=== PATIENT | female | born 1995 | race Caucasian/White ===

== ENCOUNTER 2021-12-20 19:17 | Emergency (ER) | payer SELFPAY ==
[~2021-12-20] VITALS: Ht 167.6 cm; Wt 65.8 kg
--- NOTE | 2021-12-20 19:20 | NUR ---
PT BIBS FOR C/O MIDSTERNAL CP X 3 DAYS, APPEARS VERY ANXIOUS. PT A/OX3 TOLERATING R/A AT 98%. PT CONNECTED TO POX AND MONITOR. SAFETY MEASURES IN PLACE.
--- NOTE | 2021-12-20 20:00 | NUR ---
URINE COLLECTED AND SENT TO LAB
--- NOTE | 2021-12-20 20:01 | NUR ---
MEDICAL SAFETY DIRECTOR AT PT'S BEDSIDE
--- NOTE | 2021-12-20 20:08 | NUR ---
SPACE PHYSICIST AT PT'S BEDSIDE
[2021-12-20 21:19] LABS: BASOPHILS % (AUTO) 0.5 % (0.0-2.0); EOSINOPHILS % (AUTO) 0.8 % (0.0-6.0); HEMATOCRIT 41 % (33-45); HEMOGLOBIN 13.8 g/dL (11.5-14.8); LYMPHOCYTES # (AUTO) 3.6 K/uL (0.8-4.8); LYMPHOCYTES % (AUTO) 44.7 % (20.0-44.0); MEAN CORPUSCULAR HGB CONC 34 g/dl (31.0-36.0); MEAN CORPUSCULAR VOLUME 89 fL (82-100); MONOCYTES # (AUTO) 0.5 K/uL (0.1-1.30); NEUTROPHILS # (AUTO) 3.9 K/uL (1.8-8.9); PLATELET COUNT (AUTO) 170 K/uL (150-450); RED BLOOD CELL COUNT(AUTO) 4.57 MIL/uL (4.0-5.2); WHITE BLOOD COUNT (AUTO) 8.1 K/uL (4.3-11.0)
[2021-12-20 21:27] LABS: CALCIUM, SERUM 8.4 mg/dL (8.5-10.1); CARBON DIOXIDE 23 mmol/L (21-32); CHLORIDE 104 mmol/L (98-107); CREATININE 0.7 mg/dL (0.6-1.3); GLUCOSE 87 mg/dL (74-106); SODIUM SERUM 134 mmol/L (136-145); UREA NITROGEN, BLOOD 14 mg/dL (7-18)
[2021-12-20 21:58] VITALS: BP 109/64
--- NOTE | 2021-12-20 21:58 | NUR ---
Patient discharged to home in stable condition. RX Written and verbal after care instructions given. Patient verbalizes understanding of instruction. PT ambulatory with a steady gait
[2021-12-20] MEDS ORDERED: IBUPROFEN 600 MG TABLET PO ONE (22:00)
== END 2021-12-20 21:58 | disposition home or self-care (01) ==
LOC: ER 19:21
DX: R07.89 Other chest pain (principal); Z60.2 Problems related to living alone
CPT/HCPCS: 36415; 71045-TC; 80048-TC; 84484-TC; 84703-TC; 85025-TC